=== PATIENT | female | born 1980 | race Caucasian/White ===

== ENCOUNTER 2016-12-22 23:39 | Emergency (ER) | payer OTHER ==
[2016-12-23 00:50] LABS: CONTROL LINE HCG INT CTR LINE PRESENT
[2016-12-23 00:54] LABS: METHADONE URINE NEGATIVE (NEGATIVE)
[2016-12-23 01:01] LABS: ALBUMIN 3.9 GM/DL (3.2-5.2); ALBUMIN/GLOBULIN RATIO 0.95 (1.00-1.93); ALKALINE PHOSPHATASE 127 U/L (45-117); ALT/SGPT 135 U/L (12-78); ANION GAP 8 MEQ/L (8-16); AST/SGOT 302 U/L (7-37); BILIRUBIN,DIRECT 0.4 MG/DL (0.0-0.2); BILIRUBIN,TOTAL 0.6 MG/DL (0.2-1.0); BLOOD UREA NITROGEN 7 MG/DL (7-18); CALCIUM LEVEL 9.2 MG/DL (8.5-10.1); CARBON DIOXIDE LEVEL 29 MEQ/L (21-32); CHLORIDE LEVEL 101 MEQ/L (98-107); CREATININE FOR GFR 0.57 MG/DL (0.55-1.02); GLOMERULAR FILTRATION RATE > 60.0 (>60); GLUCOSE, FASTING 87 MG/DL (70-105); POTASSIUM SERUM 3.8 MEQ/L (3.5-5.1); SODIUM LEVEL 138 MEQ/L (136-145)
[2016-12-23 01:07] LABS: MEAN CORPUSCULAR HEMOGLOBIN 32.7 pg (27.0-33.0); MEAN CORPUSCULAR HGB CONC 34.7 g/dl (32.0-36.5); MEAN CORPUSCULAR VOLUME 94.5 fl (80.0-96.0); PLATELET COUNT, AUTOMATED 146 10^3/uL (150-450); RED CELL DISTRIBUTION WIDTH 15.4 % (11.5-14.5); WHITE BLOOD COUNT 7.5 10^3/uL (4.0-10.0)
[2016-12-23] MEDS ORDERED: OXAZEPAM 15 MG CAP PO ONE (12:45)
[2016-12-23] MEDS ORDERED: OXAZ30CA2 PO (13:02)
[2016-12-23 14:29] VITALS: BP 148/65
== END 2016-12-23 14:31 | disposition home or self-care (01) ==
LOC: M ED 23:39
DX: F10.929 Alcohol use, unspecified with intoxication, unspecified (principal); F33.9 Major depressive disorder, recurrent, unspecified; F17.210 Nicotine dependence, cigarettes, uncomplicated; F19.11 Other psychoactive substance abuse, in remission; F11.90 Opioid use, unspecified, uncomplicated

== ENCOUNTER 2018-05-05 20:48 | Emergency (ER) | payer OTHER ==
[~2018-05-05] VITALS: Ht 154.9 cm; Wt 66.6 kg
[~2018-05-05 20:48] MED LIST: OXAZ30CA2 PO
[2018-05-05] MEDS ORDERED: SERT-138 (20:56)
[2018-05-05] MEDS ORDERED: VITA50005 (20:56)
[2018-05-05] MEDS ORDERED: HYDR25TAB (20:56)
[2018-05-05] MEDS ORDERED: TRAZ-163 (20:56)
[2018-05-05 23:47] VITALS: BP 120/67
== END 2018-05-05 23:48 | disposition home or self-care (01) ==
LOC: M ED 20:48
DX: F10.20 Alcohol dependence, uncomplicated (principal); Z72.0 Tobacco use; Z79.899 Other long term (current) drug therapy